=== PATIENT | female | born 1955 | race Caucasian/White ===

== ENCOUNTER 2017-02-15 12:51 | Day surgery (SDC) | payer BC ==
[~2017-02-15] VITALS: Ht 157.5 cm; Wt 68.0 kg
--- NOTE | ~2017-02-15 | OP ---
Record Of Operation [facility] [address] [place]. [address] NAME: NIKOS MARIN GUIDER : 51 STATUS : [facility]#: [id number] AGE: 62 ADM/REG DATE : 02/15/17 MR#: [id number] REPORT SERV DATE: 02/15/17 DICTATED BY: TAMERA WILLINGHAM DATE: 02/15/17 REPORT STATUS : Draft TRANSCRIBED BY: MODDanni DATE: 02/15/17 DATE OF PROCEDURE: 02/15/2017 PREOPERATIVE DIAGNOSIS: Multiple right renal calculi. POSTOPERATIVE DIAGNOSIS: Multiple right renal calculi. PROCEDURE PERFORMED: Cystoscopy, right retrograde pyelogram, right flexible ureterorenoscopy, holmium laser stone fragmentation, and stent placement. ANESTHESIA: General. ESTIMATED BLOOD LOSS: Less than 5 mL. INDICATIONS: This is a 62-year-old white female, with two approximately 8 mm stones in the pelvis of the right kidney. These were initially associated with UTI, and she has undergone ureteral stenting and antibiotic coverage. We are planning definitive endoscopic stone treatment. Risks of infection, bleeding, failure, need for further surgery have been discussed. PROCEDURE IN DETAIL: The patient was taken to the operating room and underwent a general anesthetic. She was placed in the lithotomy position on the table, and her external genitalia were sterilely prepped and draped. The 22-[place] cystoscope sheath with 30-degree lens was inserted under direct vision per urethra with the aid of the video monitor. The bladder was briefly inspected and the mucosa looked normal. The distal end of a right ureteral stent was seen exiting from the right orifice. There was minimal inflammatory change around the orifice. The left orifice was normal. There were no stones or mass lesions in the bladder. The distal end of the stent was grasped and pulled out of the urethral meatus, and an 0.038 guidewire was advanced through it up into the collecting system of the kidney under fluoroscopic guidance. A ureteral catheter was placed over this and a retrograde pyelogram was obtained showing a minimally dilated right collecting system with multiple filling defects in the renal pelvis. The guidewire was replaced back up into the kidney again under fluoroscopic guidance and a 9.5/11-[place] ureteral access sheath with obturator was advanced over the guidewire and on up into the proximal ureter without difficulty. A second guidewire was placed through the access sheath and the sheath and obturator were replaced over one of the two guidewires leaving the other in place as a safety wire. The flexible ureteroscope was then advanced through the access sheath into the proximal ureter and on up into the collecting system of the kidney. The collecting system was thoroughly inspected. No calyceal stones were noted. Two oblong crystalline stones, each measuring about 8 mm in size are lying on the floor of the renal pelvis. The 200 micron laser fiber was used to fragment both of the stones into many, many small pieces. When it was deemed that all the pieces were in the 1-2 mm range, laser fragmentation was stopped. The collecting system was completely reinspected with no large fragments remaining. The scope was then withdrawn down through the ureter under direct vision and no significant findings were noted there. The cystoscope was replaced over the guidewire and a 6-[place]izen [place] x 26 cm Contour stent was advanced over the guidewire such that the proximal end of Record Of Operation [address] [address] NAME: ZACH MARINIvan STEINER GUIDER : 51 STATUS : [facility] PAT#: [id number] AGE: 62 ADM/REG DATE : 02/15/17 MR#: [id number] REPORT SERV DATE: 02/15/17 DICTATED BY: TAMERA WILLINGHAM DATE: 02/15/17 REPORT STATUS : Draft TRANSCRIBED BY: DEYVI DATE: 02/15/17 the stent was observed to coil in the pelvis of the kidney under fluoroscopic guidance and the distal end of the stent was visually observed to coil in the bladder following removal of the guidewire. The bladder was then drained. All endoscopic apparatus was removed, and the patient was taken to recovery in stable condition. DS/DEYVI Tamera Willingham M.D. / [id number] CC: Elisa Gray M.D.
[~2017-02-15 12:51] MED LIST: ACTIVELLA1 TA1 PO; ALLEGRA PO; ALLEGRA-D24 HOUR PO; CELEXA40 MG PO; COREG12 PO; COZ25 PO; CYMBALTA60 PO; HYDROCHLOROT12.5 MG PO; HYDROCHLOROT25 MG PO; LIPITOR40 PO; MULTIPLE VIT PO; NORCO1 TA1 PO; OS500+D PO; PCET PO; SINGULAIR1 PO; THERAGRAN-M PO; [UNRECOGNIZED DRUG - OTHER] PO
== END 2017-02-15 17:56 | disposition home or self-care (01) ==
LOC: SDC 12:51
PROVIDERS: Urology
PROC: 0T768DZ Dilation of Right Ureter with Intraluminal Device, Via Natural or Artificial Opening Endoscopic (ICD-10-PCS; 2017-02-15)
PROC: 0TF68ZZ Fragmentation in Right Ureter, Via Natural or Artificial Opening Endoscopic (ICD-10-PCS; principal; 2017-02-15 13:45)
DX: N20.0 Calculus of kidney (principal); J30.2 Other seasonal allergic rhinitis; G43.909 Migraine, unspecified, not intractable, without status migrainosus; M19.90 Unspecified osteoarthritis, unspecified site; I10 Essential (primary) hypertension; I69.334 Monoplegia of upper limb following cerebral infarction affecting left non-dominant side; E78.00 Pure hypercholesterolemia, unspecified; Z87.442 Personal history of urinary calculi; Z98.41 Cataract extraction status, right eye; Z98.42 Cataract extraction status, left eye; Z96.1 Presence of intraocular lens; Z90.89 Acquired absence of other organs; Z90.49 Acquired absence of other specified parts of digestive tract; Z98.890 Other specified postprocedural states; Z88.2 Allergy status to sulfonamides; Z79.899 Other long term (current) drug therapy
CPT/HCPCS: 74420; A9270-GY; C1758; C1894; C2617; J2250; J2270; J2370; J2405; J2710; J3010; Q9967